=== PATIENT | female | born 1965 | race Caucasian/White ===

== ENCOUNTER 2018-12-19 05:15 | Inpatient (IN) | payer BC ==
[2018-12-14 12:29] LABS: BASOPHILS # (AUTO) 0.1 (0.0-0.1); BASOPHILS % 0.9 % (0.0-1.0); EOSINOPHILS # (AUTO) 0.2 (0.0-0.4); EOSINOPHILS % 1.8 % (0.0-6.0); HEMATOCRIT 47.3 % (34.2-44.1); HEMOGLOBIN 16.1 g/dL (12.0-16.0); LYMPHOCYTES # (AUTO) 2.7 (1.0-3.2); MEAN CORPUSCULAR HEMOGLOBIN 31.8 pg (28-32); MEAN CORPUSCULAR VOLUME 93.3 fL (81-99); MONOCYTES # (AUTO) 0.6 (0.2-0.8); MONOCYTES % 7.3 % (4.4-11.3); NEUTROPHILS # (AUTO) 4.9 (2.1-6.9); NEUTROPHILS % 57.8 % (38.7-80.0); PLATELET COUNT 266 x10e3/uL (140-360); RED BLOOD COUNT 5.07 x10e6/uL (3.6-5.1); RED CELL DISTRIBUTION WIDTH 13.9 % (11.7-14.4)
[2018-12-14 13:04] LABS: ANION GAP 10.6 mmol/L (8-16); BLOOD UREA NITROGEN 6 mg/dL (7-26); BUN/CREATININE RATIO 7 (6-25); CARBON DIOXIDE 26 mmol/L (22-29); CHLORIDE 103 mmol/L (98-107); CREATININE, SERUM 0.87 mg/dL (0.57-1.11); EST GLOMERULAR FILTRATION RATE > 60 ML/MIN (60-); GLUCOSE 82 mg/dL (74-118); POTASSIUM 3.6 mmol/L (3.5-5.1); SODIUM 136 mmol/L (136-145)
[~2018-12-19] VITALS: Ht 165.1 cm; Wt 69.4 kg
[~2018-12-19 05:15] MED LIST: ABX PO; ESTRACE42.5 GM TOP; LEVOTHYROXINE50 MCG PO; MAGNESIUM OXID400 MG PO; VIT D PO
[2018-12-19] MEDS ORDERED: CEFOXITIN SOD 1 GM VIAL ONE (05:52)
[2018-12-19] MEDS ORDERED: CLINDAMYCIN PHOS 900MG/ 50ML 50 ML IV ONE (05:53)
[2018-12-19] MEDS ORDERED: ESTRADIOL PATCH TD (06:12)
[2018-12-19] MEDS ORDERED: CEFTIN PO (06:12)
[2018-12-19] MEDS ORDERED: CEFOXITIN 2GM/ D5W 50ML 50 ML IV ONE (06:30)
--- NOTE | 2018-12-19 06:38 | Diagnostic Imaging Report ---
EXAMINATION: CHEST 2 VIEWS INDICATION: PRE-OP COMPARISON: None FINDINGS: PA and lateral views TUBES and LINES: None. LUNGS: Lungs are well inflated. Lungs are clear. Azygos fissure. There is no evidence of pneumonia or pulmonary edema. PLEURA: No pleural effusion or pneumothorax. HEART AND MEDIASTINUM: The cardiomediastinal silhouette is unremarkable. BONES AND SOFT TISSUES: No acute osseous lesion. Soft tissues are unremarkable. UPPER ABDOMEN: No free air under the diaphragm. IMPRESSION: No acute thoracic abnormality. Signed by: DR. Shahzad Asencio MD on 12/19/2018 6:34 AM
[2018-12-19] MEDS ORDERED: BELLADONNA/OPIUM 30 MG SUPP RC ONE (06:50)
[2018-12-19] MEDS ORDERED: IOPAMIDOL 610MG/1ML 300 MG/ML VIAL IV ONE (06:50)
[2018-12-19] MEDS ORDERED: BUPIVACAINE 0.5%/EPI 30 ML SDV INJ ONE (07:30)
[2018-12-19] MEDS ORDERED: METHYLENE BLUE 1% INJ 10 ML VIAL INJ ONE (07:42)
[2018-12-19] MEDS ORDERED: MUPIROCIN 2% OINT 22 GM TUBE ONE (07:42)
[2018-12-19] MEDS ORDERED: BACITRACIN 50,000 UNIT VIAL ONE (08:08)
[2018-12-19] MEDS ORDERED: NALOXONE HCL INJ 0.4 MG/ML AMP IV PRN (09:30)
[2018-12-19] MEDS ORDERED: DIPHENHYDRAMINE HCL 25 MG CAP PO PRN (09:30)
[2018-12-19] MEDS ORDERED: ONDANSETRON HCL INJ 2MG/ML 2ML 2 MG/ML VIAL IV PRN (09:30)
[2018-12-19] MEDS ORDERED: PHENAZOPYRIDINE HCL 100 MG TAB PO PRN (09:30)
[2018-12-19] MEDS ORDERED: MORPHINE SULFATE 1 MG/ML 30ML PCA IV PRN (09:30)
--- OUTSIDE RECORDS SUMMARY | 2018-12-19 10:11 | XMS REPORT ---
Author Author [facility] Address Unknown Phone Unavailable Care Team Providers Care Marketing Admin Name Role Phone PEDRO NGUYỄN Unavailable Unavailable Problems This patient has no known problems. Allergies, Adverse Reactions, Alerts This patient has no known allergies or adverse reactions. Medications This patient has no known medications. Results Test Description Test Time Test Comments Text Results Atomic Results Result Comments CHEST 2 VIEWS 2018-12-19 06:32:00 [place] [id number] Patient Name: HERB COVARRUBIAS MR #: [id number] : 1965 Age/Sex: 53/F Req #: [id number] Adm Physician: Ordered by: PEDRO NGUYỄN MD Report #: [id number] Location: OR Room/Bed: Procedure: [id number] DX/CHEST 2 VIEWS Exam Date: 12/19/18 Exam Time: 0608 REPORT STATUS: Signed EXAMINATION: CHEST 2 VIEWS INDICATION: PRE-OP COMPARISON: None FINDINGS: PA and lateral views TUBES and LINES: None. LUNGS: Lungs are well inflated. Lungs are clear. Azygos fissure. There is no evidence of pneumonia or pulmonary edema. PLEURA: No pleural effusion or pneumothorax. HEART AND MEDIASTINUM: The cardiomediastinal silhouette is unremarkable. BONES AND SOFT TISSUES: No acute osseous lesion. Soft tissues are unremarkable. UPPER ABDOMEN: No free air under the diaphragm. IMPRESSION: No acute thoracic abnormality. Signed by: DR. Shahzad Kunz MD on 12/19/2018 6:34 AM Dictated By: SHAHZAD KUNZ MD 3 Transcribed By: JOE on 12/19/18633 COPY TO: PEDRO NGUYỄN MD
[2018-12-19] MEDS: D5.45%NS/KCL 20MEQ 1,000 ML IV SCH ×2 (13:03→16:21)
[2018-12-19 13:15] VITALS: BP 121/73
[2018-12-19 13:18] VITALS: BP 121/73
[2018-12-19 13:37] VITALS: BP 121/73
[2018-12-19] MEDS ORDERED: LIDOCAINE HCL 2% LOCAL INJ 5 ML SDV VIAL INJ ONE (14:21)
[2018-12-19] MEDS ORDERED: ONDANSETRON HCL INJ 2MG/ML 2ML 2 MG/ML VIAL ONE (14:21)
[2018-12-19] MEDS ORDERED: KETOROLAC TROMETHAMINE 30 MG/ML VIAL ONE (14:21)
[2018-12-19] MEDS ORDERED: PROPOFOL IV EMULSION 10 MG/ML 20 ML VIAL ONE (14:21)
[2018-12-19] MEDS ORDERED: SEVOFLURANE INHAL SOLN 250 ML PEN BTL ONE (14:21)
[2018-12-19] MEDS ORDERED: DEXAMETHASONE SOD PHOS INJ 4 MG/ML VIAL ONE (14:21)
[2018-12-19] MEDS: CEFOXITIN 2GM/ D5W 50ML 50 ML IV SCH ×2 (14:43→21:43)
[2018-12-19] MEDS ORDERED: ACETAMINOPHEN 325 MG TAB PO PRN (16:15)
[2018-12-19] MEDS: DOCUSATE SODIUM 100 MG CAP PO SCH (16:20)
[2018-12-19 16:29] VITALS: BP 96/54
[2018-12-19] MEDS ORDERED: FENTANYL CITRATE/PF 100MCG/2 ML INJ ONE (17:59)
[2018-12-19] MEDS ORDERED: MIDAZOLAM HCL 2 MG/2 ML VIAL ONE (17:59)
[2018-12-19 20:00] VITALS: BP 98/62
[2018-12-19 21:30] VITALS: BP 98/62
[2018-12-20] VITALS (7 sets, daily range): BP systolic 96–110; BP diastolic 55–66
[2018-12-20] MEDS: CEFOXITIN 2GM/ D5W 50ML 50 ML IV SCH (05:55)
[2018-12-20] MEDS: LEVOTHYROXINE SODIUM 50 MCG TAB PO SCH (05:55)
[2018-12-20 06:39] LABS: BASOPHILS % 0.3 % (0.0-1.0); EOSINOPHILS # (AUTO) 0.1 (0.0-0.4); EOSINOPHILS % 0.5 % (0.0-6.0); HEMATOCRIT 39.3 % (34.2-44.1); HEMOGLOBIN 12.8 g/dL (12.0-16.0); LYMPHOCYTES # (AUTO) 2.5 (1.0-3.2); MEAN CORPUSCULAR HEMOGLOBIN 31.1 pg (28-32); MEAN CORPUSCULAR HGB CONC 32.6 g/dL (31-35); MEAN CORPUSCULAR VOLUME 95.4 fL (81-99); MONOCYTES # (AUTO) 1.1 (0.2-0.8); MONOCYTES % 7.2 % (4.4-11.3); NEUTROPHILS # (AUTO) 11.1 (2.1-6.9); NEUTROPHILS % 74.5 % (38.7-80.0); PLATELET COUNT 239 x10e3/uL (140-360); RED BLOOD COUNT 4.12 x10e6/uL (3.6-5.1); RED CELL DISTRIBUTION WIDTH 13.9 % (11.7-14.4)
[2018-12-20 07:07] LABS: BLOOD UREA NITROGEN 6 mg/dL (7-26); BUN/CREATININE RATIO 7 (6-25); CALCIUM 8.4 mg/dL (8.4-10.2); CARBON DIOXIDE 26 mmol/L (22-29); CHLORIDE 103 mmol/L (98-107); CREATININE, SERUM 0.82 mg/dL (0.57-1.11); EST GLOMERULAR FILTRATION RATE > 60 ML/MIN (60-); GLUCOSE 99 mg/dL (74-118); SODIUM 134 mmol/L (136-145)
--- NOTE | 2018-12-20 08:00 | NUR ---
Received patient this morning, a/ox3, in bed, Campos cath in place draining, no hematuria noted, HYDRANT SETTER pump in place for pain control, call light within reach, will monitor.
[2018-12-20] MEDS ORDERED: TRAMADOL HCL 50 MG TAB PO PRN (08:15)
[2018-12-20] MEDS ORDERED: MORPHINE SULFATE INJ 4 MG/ML INJ 1ML IV PRN (08:45)
[2018-12-20] MEDS ORDERED: LEVOTHYROXINE SODIUM 50 MCG TAB PO SCH (09:00)
[2018-12-20] MEDS: MAGNESIUM OXIDE 400 MG TAB PO SCH (09:00)
[2018-12-20] MEDS: DOCUSATE SODIUM 100 MG CAP PO SCH ×2 (09:00→16:55)
--- NOTE | 2018-12-20 12:16 | NUR ---
Rounds by urologist and orders in place to d/c SLEEP SCIENTIST pump and remove packing to vaginal area. Dressing removed with moslty old bloody drainage, no fresh blood noted, Campos switched to Leg bag and educated patient on how to switched bags and rinse them out while maintaining clean technique with proper infection control.
--- NOTE | 2018-12-20 14:48 | NUR ---
CASE MANAGEMENT INITIAL ASSESSMENT Actuarial Director to bedside to discuss plan of care with patient/family. CM/SW role and care transitions discussed. Anticipated discharge plan discussed along with duration of care. CM/SW discussed patients right to make decisions in care. CM work hours given. Patient lives: PATIENT LIVES IN [address] IN [place], [place] WITH [facility] Admit/Transfer: OR Hospital/ER visits since last admit: NO POA/Emergency contact: JEREMIAH COVARRUBIAS [phone] Current/Previous Home Health: NONE PCP/Follow-up Care: NONE; PATIENT EDUCATED ON IMPORTANCE OF FINDING PCP AND FOLLOWING UP WITHIN 7 DAYS POST DISCHARGE Current/Previous DME: NONE Medications (referring to index hospitalization or the first time you were in the hospital) a. Were changes made in your medications when you were in the hospital on [date of index hospitalization]? Yes No Not sure Explain: Note: If no or not sure, please skip to question d b. Did you understand the changes? Yes No Explain: c. Were you able to obtain your new medications right away? Yes Non/a SNF only Explain: d. Were you able to take your medications like the doctor wanted you to? Yes No Explain: e. Did the hospital give you an accurate, easy to understand list of medications when you left? Yes No n/a SNF only Explain: Scale of 1-10 how comfortable does patient feel with disease management in outpatient setting: Other Services: NONE Employment Status: EMPLOYED Areas of Concerns: NONE AT THIS TIME Referral Needs: NONE Education Needs: NONE IMM/FELICIANO given and signed (if applicable): N/A Goal for discharge: DISCHARGE HOME WITH NO NEEDS CM left business card at the bedside with contact information. Name and number was also written on the patients whiteboard. Patient verbalized understanding of discussion. CM will follow-up with ongoing discharge and transition of care needs.
[2018-12-20] MEDS: PIPER-TAZ 3.375 GM 50 ML IV SCH (17:12)
--- NOTE | 2018-12-20 17:44 | NUR ---
Patient alert and responsive, OOB and ambulating int he room and pains well managed, no bleeding noted at this time, leg bag in place and able to empty, will monitor.
[2018-12-20] MEDS ORDERED: PIPER-TAZ 3.375 GM 50 ML IV SCH (22:00)
[2018-12-21] VITALS: BP 97/61
[2018-12-21] MEDS: PIPER-TAZ 3.375 GM 50 ML IV SCH ×2 (00:28→08:47)
[2018-12-21 04:00] VITALS: BP 108/56
--- NOTE | 2018-12-21 05:00 | NUR ---
Scant vaginal bleeding noted. Pads changed per patient request.
[2018-12-21] MEDS: LEVOTHYROXINE SODIUM 50 MCG TAB PO SCH (05:31)
[2018-12-21 06:04] LABS: BASOPHILS # (AUTO) 0.1 (0.0-0.1); BASOPHILS % 0.6 % (0.0-1.0); EOSINOPHILS # (AUTO) 0.2 (0.0-0.4); EOSINOPHILS % 1.6 % (0.0-6.0); HEMATOCRIT 38.2 % (34.2-44.1); HEMOGLOBIN 12.7 g/dL (12.0-16.0); LYMPHOCYTES # (AUTO) 2.2 (1.0-3.2); LYMPHOCYTES % 22.5 % (18.0-39.1); MEAN CORPUSCULAR HEMOGLOBIN 31.4 pg (28-32); MEAN CORPUSCULAR HGB CONC 33.2 g/dL (31-35); MEAN CORPUSCULAR VOLUME 94.6 fL (81-99); MONOCYTES # (AUTO) 0.8 (0.2-0.8); MONOCYTES % 8.3 % (4.4-11.3); NEUTROPHILS # (AUTO) 6.5 (2.1-6.9); NEUTROPHILS % 66.7 % (38.7-80.0); PLATELET COUNT 241 x10e3/uL (140-360); RED BLOOD COUNT 4.04 x10e6/uL (3.6-5.1); RED CELL DISTRIBUTION WIDTH 13.8 % (11.7-14.4)
[2018-12-21 06:26] LABS: ANION GAP 10.1 mmol/L (8-16); BLOOD UREA NITROGEN 6 mg/dL (7-26); BUN/CREATININE RATIO 8 (6-25); CALCIUM 8.4 mg/dL (8.4-10.2); CARBON DIOXIDE 24 mmol/L (22-29); CHLORIDE 107 mmol/L (98-107); CREATININE, SERUM 0.75 mg/dL (0.57-1.11); EST GLOMERULAR FILTRATION RATE > 60 ML/MIN (60-); GLUCOSE 86 mg/dL (74-118); POTASSIUM 4.1 mmol/L (3.5-5.1); SODIUM 137 mmol/L (136-145)
--- NOTE | 2018-12-21 07:21 | NUR ---
Received patient awake in bed at this time, no signs of distress. Call light in reach will continue to monitor.
[2018-12-21 08:21] VITALS: BP 115/66
[2018-12-21] MEDS: MAGNESIUM OXIDE 400 MG TAB PO SCH (08:47)
[2018-12-21] MEDS: DOCUSATE SODIUM 100 MG CAP PO SCH (08:47)
[2018-12-21 10:13] VITALS: BP 115/66
[2018-12-21] MEDS ORDERED: ULTRAM50 MG PO (10:15)
[2018-12-21] MEDS ORDERED: LEVAQUIN500 MG PO (10:15)
--- NOTE | 2018-12-21 10:30 | NUR ---
Removed patients IV. Catheter tip intact and pressure dressing applied.
--- NOTE | 2018-12-21 10:38 | NUR ---
Patient discharged from facility. Patient gathered all personal belongings, discharge instructions, and follow up information.
--- NOTE | 2019-02-13 07:37 | Operative Report ---
DATE OF PROCEDURE: 12/19/2018 SURGEON: Bryan Dougherty MD PREOPERATIVE DIAGNOSES: 1. 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 2. Cystocele. 3. History of urolithiasis. POSTOPERATIVE DIAGNOSIS: 1. 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 2. Cystocele. 3. History of urolithiasis. OPERATION PERFORMED: 1. Complicated excision of distal urethral sling (separately performed for the diagnosis of sling). 2. Urethrolysis (separately performed to hopefully relieve the obstruction of the bladder outlet). 3. Cystocele repair (separately performed for the cystocele). 4. Cystourethroscopy with bilateral ureteral catheterization and retrograde ureteropyelography (separately performed to evaluate upper tract in light of the kidney stone history). 5. Interpretation of retrograde ureteropyelography. 6. Supervision of fluoroscopy, no radiologist present. CYLINDER DYER: Sandra Dougherty MD. ANESTHESIA: General. COMPLICATIONS: None. CLINICAL SUMMARY: Nu Santacruz is a 53-year-old woman who had a previous sling. She has bladder outlet obstruction symptoms and desires resolution. She is aware of the risks of bleeding, infection, injury to adjacent structures, new incontinence, need for additional procedures, and elected to proceed. OPERATIVE PROCEDURE IN DETAIL: Informed consent was verified. Nu Santacruz was properly identified, taken to the operating room, placed on the operating table in supine position. Anesthesia was uneventfully begun. The patient was then carefully gently repositioned in dorsal lithotomy position with all pressure points well padded. Her abdomen, genitalia were shaved, prepared, and draped in usual sterile fashion. Labial stay sutures were placed. We made a midline anterior incision and developed bilateral vaginal wall flaps. Eventually, we found the patient's sling. The sling was rolled over itself as a cylinder and was not flat as it should have been and it was extremely distal in the urethra and not at the level of the mid urethra where it should be. We isolated the sling and dissected it laterally as much as possible and incised it there, thus excising all sling material to the lateral most portions of the vagina. We then mobilized the urethra by gently dissecting it and releasing it from surrounding scarring tissue. The patient's grade 2 cystocele was now identified and relieved, but it should be repaired to avoid further prolapse. Therefore, we finished dissecting the anterior internal vaginal wall and then we pierced the endopelvic fascia bilaterally, taking care to stay as laterally as possible to avoid injuring the periurethral neurovascular complexes. Once this mobilization was carried out, a plicating type of cystocele repair was performed from the bladder neck to the cephalad most extent of the anterior vaginal dissection. This resulted in complete reduction of the patient's cystocele. Copious irrigation was performed. Verification of hemostasis was performed. The patient's incision was then approximated with heavy Vicryl suture in a running fashion. The Campos catheter, which was previously placed was removed. Cystoscopy was performed. A panendoscopy of the bladder revealed no suspicious gross lesions, no tumors, no stones, and no diverticula. Normally positioned and configured ureteral orifices were identified. Ureteral catheter was used to cannulate each ureter and retrograde ureteropyelography was performed. Interpretation of retrograde ureteropyelography: Contrast was instilled in retrograde fashion bilaterally. There were no tumors, no stones, and no diverticula. Unobstructed drainage was observed bilaterally fluoroscopically. The patient's bladder was drained. Cystoscope was withdrawn. Vaginal packing was placed. The Campos catheter was replaced. The patient was uneventfully reversed from anesthesia and taken to recovery room in stable condition. There were no complications to the procedure. She tolerated the procedure well. Explicit postop instructions were given. We will follow the patient up in the office as well as on a long-term basis. Bryan Dougherty MD [place]/MODL /[id number]
== END 2018-12-21 10:38 | disposition home or self-care (01) | DRG 664 ==
LOC: OR 05:15 → PACU V 09:26 → MED/SURG 12:36
PROVIDERS: ADMIT Urology; ATTEND Urology
PROC: 0TPD0JZ Removal of Synthetic Substitute from Urethra, Open Approach (ICD-10-PCS; principal; 2018-12-19 07:00)
PROC: 0JQC0ZZ Repair Pelvic Region Subcutaneous Tissue and Fascia, Open Approach (ICD-10-PCS; 2018-12-19 07:00)
DX: N32.0 Bladder-neck obstruction (principal); N81.10 Cystocele, unspecified; R35.1 Nocturia; R31.0 Gross hematuria; N39.46 Mixed incontinence; K21.9 Gastro-esophageal reflux disease without esophagitis; K25.9 Gastric ulcer, unspecified as acute or chronic, without hemorrhage or perforation; R33.9 Retention of urine, unspecified; F17.200 Nicotine dependence, unspecified, uncomplicated; N81.89 Other female genital prolapse; N81.6 Rectocele; N95.2 Postmenopausal atrophic vaginitis; N20.0 Calculus of kidney; N32.81 Overactive bladder; J44.9 Chronic obstructive pulmonary disease, unspecified; E03.9 Hypothyroidism, unspecified; Z88.5 Allergy status to narcotic agent; Z88.8 Allergy status to other drugs, medicaments and biological substances; Z87.440 Personal history of urinary (tract) infections; Z87.442 Personal history of urinary calculi; Z80.52 Family history of malignant neoplasm of bladder; Z84.1 Family history of disorders of kidney and ureter
CPT/HCPCS: 36415; 71046; 74420; 80048; 84550; 85025; 88300; 88304; 93005; J0694; J1100; J1885; J2001; J2250; J2270; J2405; J2543